=== PATIENT | female | born 1970 | race Caucasian/White ===

== ENCOUNTER 2023-08-11 07:00 | Day surgery (SDC) | payer BC, SELFPAY ==
[2023-08-11 07:35] VITALS: BMI 28.5
--- NOTE | 2023-08-11 09:40 | CARDSERVDEF ---
Echocardiogram with Definity completed after protocol screening completed. Allergies verified.
Patent IV site: _Right hand 22 G PC site clear____
IV site flushed with 0.9% NaCl pre and post administration.
Diluted bolus method utilized to enhance visualization of ventricular duran.
Total volume given: __4__ mL
Patient tolerated all procedures well without complications.
== END 2023-08-11 10:40 | disposition home or self-care (01) ==
LOC: CATH 07:00
PROVIDERS: ATTENDING PHYSICIAN Internal Medicine
DX: I50.22 Chronic systolic (congestive) heart failure (principal); R93.1 Abnormal findings on diagnostic imaging of heart and coronary circulation; I34.0 Nonrheumatic mitral (valve) insufficiency; N18.32 Chronic kidney disease, stage 3b; R06.02 Shortness of breath; C34.92 Malignant neoplasm of unspecified part of left bronchus or lung; E78.5 Hyperlipidemia, unspecified
CPT/HCPCS: 93312; 93320; 93325; Q9957

== ENCOUNTER → 2024-03-30 08:33 | Outpatient (REF) | payer BC, SELFPAY | LOC: RAD 08:33 | PROVIDERS: ATTENDING PHYSICIAN Family Medicine | DX: R05.1 Acute cough (principal); J45.20 Mild intermittent asthma, uncomplicated | CPT/HCPCS: 71046 ==

== ENCOUNTER → 2024-07-10 18:25 | Outpatient (REF) | payer BC, SELFPAY | LOC: MRI 18:25 | PROVIDERS: ATTENDING PHYSICIAN Family Medicine | DX: G51.0 Bell's palsy (principal); C34.92 Malignant neoplasm of unspecified part of left bronchus or lung | CPT/HCPCS: 70553; A9575 ==

== ENCOUNTER → 2024-08-17 09:22 | Outpatient (REF) | payer BC, SELFPAY | LOC: PET 09:22 | PROVIDERS: ATTENDING PHYSICIAN Physician Assistant Medical | DX: C34.32 Malignant neoplasm of lower lobe, left bronchus or lung (principal) | CPT/HCPCS: 78815; A9552 ==